=== PATIENT | male | born 1975 | race African-American/Black ===

== ENCOUNTER 2017-01-02 07:30 | Emergency (ER) | payer MEDICAID ==
[~2017-01-02] VITALS: Ht 185.4 cm; Wt 80.0 kg
[2017-01-02] MEDS ORDERED: KEPP500 PO (07:32)
[2017-01-02] MEDS ORDERED: METOCLOPRAMIDE HCL 10MG/2ML VIAL IV ONE (08:15)
[2017-01-02] MEDS ORDERED: KETOROLAC 30MG/ML VIAL IV ONE (08:15)
[2017-01-02 08:17] LABS: BASOPHILS % 0.7 % (0.0-2.0); EOSINOPHILS % 1.1 % (0.0-5.0); HEMATOCRIT. 42.2 % (42.0-52.0); HEMOGLOBIN. 14.4 g/dL (14.0-18.0); LYMPHOCYTES % 27.9 % (20.0-50.0); MEAN CORPUSCULAR HEMOGLOBIN 35.2 pg (28.0-32.0); MEAN CORPUSCULAR VOLUME 103.5 fL (80.0-94.0); MEAN PLATELET VOLUME 8.4 fl (7.4-10.4); NEUTROPHILS % 61.3 % (40.0-76.0); PLATELET 167 x1000/uL (130-400); RED BLOOD CELL COUNT 4.08 mill/uL (4.7-6.1); RED CELL DISTRIBUTION WIDTH 11.7 % (11.6-14.6)
[2017-01-02 08:25] VITALS: BP 143/103
[2017-01-02 08:25] LABS: INR 1.1; PROTHROMBIN TIME 11.8 sec
[2017-01-02 08:33] LABS: CARBON DIOXIDE 25 mEq/L (21-32); CHLORIDE 108 mEq/L (98-107)
== END 2017-01-02 08:38 | disposition home or self-care (01) ==
LOC: ER 07:34
DX: R56.9 Unspecified convulsions (principal); I10 Essential (primary) hypertension; F12.10 Cannabis abuse, uncomplicated; Z88.8 Allergy status to other drugs, medicaments and biological substances
CPT/HCPCS: 36415; 80053; 83605; 85025; 85610; 87040; 99284

== ENCOUNTER 2017-08-05 14:19 | Emergency (ER) | payer MEDICAID ==
[~2017-08-05] VITALS: Ht 177.8 cm; Wt 70.0 kg
[~2017-08-05 14:19] MED LIST: KEPP500 PO
[2017-08-05 15:29] VITALS: BP 115/79
== END 2017-08-05 16:16 | disposition left against medical advice (07) ==
LOC: ER 14:28
DX: Z53.21 Procedure and treatment not carried out due to patient leaving prior to being seen by health care provider (principal)

== ENCOUNTER 2024-05-26 02:55 | Inpatient (IN) | payer MEDICAID, OTHER ==
[~2024-05-26] VITALS: Ht 177.8 cm; Wt 79.4 kg
[2024-05-26] MEDS: MIDAZOLAM HCL 2 MG/2 ML VIAL IV ONE ×2 (03:35→03:51)
[2024-05-26] MEDS: LEVETIRACETAM 1000MG PREMIX 100 ML IV ONE (03:36)
[2024-05-26] MEDS: SODIUM CHLORIDE 0.9% 1,000 ML IV ONE (03:36)
[2024-05-26 03:43] LABS: BASOPHILS % 0.2 % (0.0-2.0); EOSINOPHILS % 0.1 % (0.0-5.0); HEMATOCRIT. 47.3 % (42.0-52.0); HEMOGLOBIN. 15.1 g/dL (14.0-18.0); MEAN CORPUSCULAR HEMOGLOBIN 35.8 pg (28.0-32.0); MEAN CORPUSCULAR HGB CONC 31.9 g/dL (31.0-37.0); MEAN CORPUSCULAR VOLUME 112.1 fL (80.0-94.0); MEAN PLATELET VOLUME 8.7 fl (7.4-10.4); MONOCYTES % 5.5 % (2.0-8.0); NEUTROPHILS % 80.2 % (40.0-76.0); PLATELET 213 x1000/uL (130-400); RED BLOOD CELL COUNT 4.22 mill/uL (4.7-6.1); RED CELL DISTRIBUTION WIDTH 13.7 % (11.6-14.6); WHITE BLOOD COUNT 17.5 x1000/uL (4.5-11.0)
[2024-05-26 03:46] LABS: ADD RBC MORPHOLOGY YES; DIFFERENTIAL COMMENT 1
[2024-05-26 03:50] LABS: CHLORIDE 106 mEq/L (98-107); POTASSIUM 4.6 mEq/L (3.5-5.1); SODIUM 139 mEq/L (136-145)
[2024-05-26 03:51] LABS: CALCIUM 8.8 mg/dL (8.7-10.4); CARBON DIOXIDE 14 mEq/L (21-32)
[2024-05-26 03:56] LABS: CREATININE 1.3 mg/dL (0.6-1.3); GLUCOSE 157 mg/dL (70-105); UREA NITROGEN BLOOD 16 mg/dL (9-23)
[2024-05-26 03:57] LABS: TROPONIN I HIGH SENSITIVITY 10 ng/L (3.0-53)
[2024-05-26 04:24] LABS: BG BASE EXCESS -12.6 mmol/L (-2.0-3.0); BG CARBOXYHEMOGLOBIN 2.3 % (0.5-1.5); BG DEOXYHEMOGLOBIN 2.3 % (0.0-5.0); BG FRACTION INSPIRED OXYGEN 100; BG HCO3 ACT 13.3 mmol/L (21.0-28.0); BG METHEMOGLOBIN 0.3 % (0.5-1.5); BG OXYGEN SATURATION 97.6 % (94.0-98.0); BG OXYHEMOGLOBIN 95.1 % (94.0-98.0); BG PH 7.249 (7.350-7.450); BG TOTAL HEMOGLOBIN 14.5 g/dL (13.5-17.5); BG VENT MODE RESUS BAG
[2024-05-26 04:39] LABS: LACTIC ACID 15.3 mmol/L (0.4-2.0)
[2024-05-26] MEDS: LORAZEPAM 2MG/ML INJ IV ONE (05:35)
[2024-05-26] MEDS ORDERED: DOCUSATE SODIUM 100MG CAPSULE PO PRN (08:00)
[2024-05-26] MEDS ORDERED: GUAIFENESIN 200MG/10ML SUGAR FREE UDC PO PRN (08:00)
[2024-05-26] MEDS ORDERED: ACETAMINOPHEN 325MG TABLET PO PRN ×2 (08:00)
[2024-05-26] MEDS ORDERED: IPRATROPIUM/ALBUTEROL 0.5-3(2.5)MG/3ML NEB HHN PRN (08:00)
[2024-05-26] MEDS: LACTATED RINGERS 1,000 ML IV SCH (08:15)
[2024-05-26 08:30] VITALS: PULSE 118; RESP 20
[2024-05-26] MEDS: IPRATROPIUM/ALBUTEROL 0.5-3(2.5)MG/3ML NEB HHN SCH (08:36)
[2024-05-26] MEDS ORDERED: LEVETIRACETAM 500MG PREMIX 100 ML IV SCH (09:00)
[2024-05-26] MEDS: LEVETIRACETAM 500MG PREMIX 100 ML IV SCH (09:06)
[2024-05-26] MEDS: PIPERACILLIN/TAZO 3.375G/50ML 50 ML IV SCH (09:06)
[2024-05-26 09:48] LABS: CLARITY URINE CLEAR (CLEAR); COLOR URINE YELLOW (YELLOW); GLUCOSE URINE NEGATIVE (NEGATIVE); KETONES URINE 2+ (NEGATIVE); LEUKOCYTE ESTERASE URINE NEGATIVE (NEGATIVE); NITRITE URINE NEGATIVE (NEGATIVE); OCCULT BLOOD URINE 1+ (NEGATIVE); PROTEIN URINE NEGATIVE (NEGATIVE); SPECIFIC GRAVITY URINE 1.013 (1.005-1.030); UROBILINOGEN URINE 0.2 E.U./dL (0.2-1.0)
[2024-05-26] MEDS: VANCOMYCIN 1.5GM/250ML IV SCH (09:53)
[2024-05-26 10:29] LABS: *AMPHETAMINES SCREEN URINE NEGATIVE (NEGATIVE); *BARBITURATES SCREEN URINE NEGATIVE (NEGATIVE); *BENZODIAZEPINES SCREEN URINE PRESUMPTIVE POSITIVE (NEGATIVE); *COCAINE SCREEN URINE NEGATIVE (NEGATIVE)
[2024-05-26 10:30] LABS: CANNABINOID URINE SCREEN PRESUMPTIVE POSITIVE (NEGATIVE); ECSTASY MDMA SCREEN URINE NEGATIVE (NEGATIVE); METHADONE URINE SCREEN NEGATIVE (NEGATIVE); OPIATES URINE SCREEN NEGATIVE (NEGATIVE); PHENCYCLIDINE URINE SCREEN NEGATIVE (NEGATIVE)
[2024-05-26 11:35] LABS: MUCUS URINE 1+ /lpf (NONE/TRACE)
[2024-05-26 11:42] LABS: BACTERIA URINE NONE SEEN; RBC URINE 0-2 /hpf (0-2); SQUAMOUS EPITHELIAL CELL URINE FEW /lpf (RARE/1+); WBC URINE 0-2 /hpf (0-2)
[2024-05-26] MEDS: LORAZEPAM 2MG/ML INJ IV PRN (13:45)
[2024-05-26 13:49] VITALS: BP 126/76; PULSE 89; RESP 20; TEMP 37.05852; O2SAT 98
[2024-05-26 16:00] VITALS: BP 168/76; PULSE 92; RESP 18; TEMP 36.78072; O2SAT 97
[2024-05-26 16:24] VITALS: BP 131/80; PULSE 90; RESP 20; TEMP 37.252
[2024-05-26 17:21] LABS: PLATELET ESTIMATE NORMAL
[2024-05-26] MEDS ORDERED: LEVETIRACETAM 500MG TABLET PO SCH (21:00)
[2024-05-26] MEDS: VANCOMYCIN 750MG/150ML (BAXTER) IV SCH (21:00)
[2024-05-26] MEDS ORDERED: LORAZEPAM 0.5MG TABLET PO NR (21:41)
[2024-05-26] MEDS: DIPHENHYDRAMINE 50MG/ML VIAL IM NR (23:07)
[2024-05-26] MEDS: LORAZEPAM 2MG/ML INJ IM NR (23:07)
[2024-05-27] VITALS (7 sets, daily range): BP systolic 127–208; BP diastolic 67–123; PULSE 68–121; RESP 17–18; TEMP 36.6696–37.00296; O2SAT 97–100
[2024-05-27] MEDS ORDERED: LORAZEPAM 2MG/ML INJ IM PRN (01:30)
[2024-05-27] MEDS: HALOPERIDOL LACTATE 5MG/ML VIAL IM PRN (02:41)
[2024-05-27] MEDS ORDERED: LEVETIRACETAM 500MG TABLET PO SCH ×2 (03:00→09:00)
[2024-05-27] MEDS: LEVETIRACETAM 500MG TABLET PO SCH (03:00)
[2024-05-27 12:46] LABS: BASOPHILS % 0.3 % (0.0-2.0); DIFFERENTIAL COMMENT 0; HEMATOCRIT. 40.5 % (42.0-52.0); HEMOGLOBIN. 13.7 g/dL (14.0-18.0); LYMPHOCYTES % 12.8 % (20.0-50.0); MEAN CORPUSCULAR HEMOGLOBIN 35.5 pg (28.0-32.0); MEAN CORPUSCULAR HGB CONC 33.8 g/dL (31.0-37.0); MEAN PLATELET VOLUME 8.5 fl (7.4-10.4); MONOCYTES % 9.5 % (2.0-8.0); NEUTROPHILS % 77.4 % (40.0-76.0); PLATELET 167 x1000/uL (130-400); RED BLOOD CELL COUNT 3.85 mill/uL (4.7-6.1); RED CELL DISTRIBUTION WIDTH 12.6 % (11.6-14.6)
[2024-05-27 12:49] LABS: CARBON DIOXIDE 22 mEq/L (21-32); CHLORIDE 109 mEq/L (98-107); POTASSIUM 3.7 mEq/L (3.5-5.1); SODIUM 140 mEq/L (136-145)
[2024-05-27 12:54] LABS: CREATININE 0.9 mg/dL (0.6-1.3)
[2024-05-27 12:55] LABS: GLUCOSE 93 mg/dL (70-105); TRIGLYCERIDE 100 mg/dL (0-150); UREA NITROGEN BLOOD 15 mg/dL (9-23)
[2024-05-27 12:56] LABS: LDL CHOLESTEROL 128 mg/dL (5-100)
[2024-05-27 12:57] LABS: CHOLESTEROL 190 mg/dL (<200); HDL CHOLESTEROL 43 mg/dL (>55)
[2024-05-27 19:42] LABS: ALANINE AMINOTRANSFERASE 15 IU/L (10-49); ALBUMIN 4.6 g/dL (3.2-4.8); ASPARTATE AMINOTRANSFERASE 43 IU/L (<34); BILIRUBIN DIRECT 0.3 mg/dL (<=3.0); PROTEIN TOTAL 8.1 g/dL (6.0-8.3)
[2024-05-27 19:53] LABS: CREATINE KINASE 1471 IU/L (46-171)
[2024-05-27] MEDS: FAMOTIDINE 20MG TABLET PO SCH (20:18)
[2024-05-27] MEDS: CLONIDINE 0.1MG TABLET PO PRN (20:18)
[2024-05-27] MEDS: VISCOUS LIDOCAINE 2% 15 ML UDC MM PRN (23:42)
[2024-05-27] MEDS: HYDRALAZINE 20MG/ML VIAL IV NR (23:42)
[2024-05-28] VITALS (10 sets, daily range): BP systolic 124–163; BP diastolic 44–111; PULSE 77–114; RESP 18–20; TEMP 36.3918–37.00296; O2SAT 95–100
[2024-05-28] MEDS: FOLIC ACID 1MG TABLET PO SCH (08:19)
[2024-05-28] MEDS: AMLODIPINE 5MG TABLET PO SCH (08:19)
[2024-05-28 08:36] LABS: BASOPHILS % 0.2 % (0.0-2.0); CARBON DIOXIDE 23 mEq/L (21-32); CHLORIDE 106 mEq/L (98-107); DIFFERENTIAL COMMENT 0; EOSINOPHILS % 0.2 % (0.0-5.0); HEMATOCRIT. 39.4 % (42.0-52.0); HEMOGLOBIN. 13.4 g/dL (14.0-18.0); LYMPHOCYTES % 17.1 % (20.0-50.0); MEAN CORPUSCULAR HEMOGLOBIN 35.7 pg (28.0-32.0); MEAN CORPUSCULAR HGB CONC 34.1 g/dL (31.0-37.0); MEAN CORPUSCULAR VOLUME 104.7 fL (80.0-94.0); MONOCYTES % 12.1 % (2.0-8.0); NEUTROPHILS % 70.4 % (40.0-76.0); PLATELET 158 x1000/uL (130-400); POTASSIUM 3.5 mEq/L (3.5-5.1); RED BLOOD CELL COUNT 3.76 mill/uL (4.7-6.1); RED CELL DISTRIBUTION WIDTH 12.5 % (11.6-14.6); SODIUM 140 mEq/L (136-145); WHITE BLOOD COUNT 8.6 x1000/uL (4.5-11.0)
[2024-05-28 08:37] LABS: CALCIUM 9.4 mg/dL (8.7-10.4)
[2024-05-28 08:42] LABS: CREATININE 0.7 mg/dL (0.6-1.3); GLUCOSE 91 mg/dL (70-105); UREA NITROGEN BLOOD 13 mg/dL (9-23)
[2024-05-28] MEDS ORDERED: THIAMINE HCL 100MG TABLET PO SCH (09:00)
[2024-05-28] MEDS: HYDRALAZINE 20MG/ML VIAL IV PRN (13:07)
[2024-05-28] MEDS: FAMOTIDINE 20MG TABLET PO SCH (15:58)
[2024-05-28] MEDS: CARVEDILOL 6.25 MG TABLET PO SCH (16:05)
[2024-05-29] VITALS (10 sets, daily range): BP systolic 122–152; BP diastolic 88–114; PULSE 84–114; RESP 18–19; TEMP 36.3918–36.72516; O2SAT 97–98
[2024-05-30] VITALS: BP 152/100; PULSE 92; RESP 18; TEMP 36.3918; O2SAT 97
[2024-05-30 04:00] VITALS: BP 141/96; PULSE 80; RESP 18; TEMP 36.44736; O2SAT 97
[2024-05-30 05:35] VITALS: PULSE 80
[2024-05-30] MEDS ORDERED: KEPP500 PO (12:08)
[2024-05-30] MEDS ORDERED: AMLO5TAB88 PO (12:08)
[2024-05-30] MEDS ORDERED: COR6 PO (12:08)
[2024-05-30] MEDS ORDERED: OXCA300T31 PO ×2 (12:08→12:09)
== END 2024-05-30 11:10 | disposition left against medical advice (07) | DRG 720 ==
LOC: ER 02:55 → 5WST 04:51 → EDBEDREQSVC 08:31 → 7EST 05-27 21:38
PROVIDERS: ADMIT Internal Medicine; ATTEND Internal Medicine
DX: A41.9 Sepsis, unspecified organism (principal); G93.41 Metabolic encephalopathy; G40.901 Epilepsy, unspecified, not intractable, with status epilepticus; I11.9 Hypertensive heart disease without heart failure; D75.89 Other specified diseases of blood and blood-forming organs; F12.988 Cannabis use, unspecified with other cannabis-induced disorder; Z53.29 Procedure and treatment not carried out because of patient's decision for other reasons; Z91.148 Patient's other noncompliance with medication regimen for other reason
CPT/HCPCS: 36415; 36600; 71045; 80048; 80061; 80076; 80305; 80320; 81003; 82375; 82550; 82805; 83605; 84145; 84484; 85025; 93005; 94640; 98960; 99291; J0360; J1200; J1630; J1953; J2060; J2250; J2543; J3370; J7030; G0480

== ENCOUNTER 2024-07-26 12:42 | Emergency (ER) | payer MEDICAID, OTHER ==
[~2024-07-26] VITALS: Ht 175.3 cm; Wt 75.0 kg
[~2024-07-26 12:42] MED LIST changes: +AMLO5TAB88 PO; +COR6 PO; +OXCA300T31 PO
[2024-07-26 12:46] VITALS: O2SAT 100
[2024-07-26] MEDS ORDERED: OXCARBAZEPINE 300MG TABLET PO SCH (13:15)
[2024-07-26] MEDS: LEVETIRACETAM 500MG PREMIX 100 ML IV ONE (13:15)
[2024-07-26 14:06] LABS: BASOPHILS % 0.3 % (0.0-2.0); DIFFERENTIAL COMMENT 0; EOSINOPHILS % 0.1 % (0.0-5.0); HEMOGLOBIN. 12.9 g/dL (14.0-18.0); LYMPHOCYTES % 8.6 % (20.0-50.0); MEAN CORPUSCULAR HEMOGLOBIN 34.8 pg (28.0-32.0); MEAN CORPUSCULAR HGB CONC 32.2 g/dL (31.0-37.0); MEAN PLATELET VOLUME 8.9 fl (7.4-10.4); MONOCYTES % 9.1 % (2.0-8.0); NEUTROPHILS % 81.9 % (40.0-76.0); PLATELET 221 x1000/uL (130-400); WHITE BLOOD COUNT 14.4 x1000/uL (4.5-11.0)
[2024-07-26 14:16] LABS: CHLORIDE 109 mEq/L (98-107); POTASSIUM 4.6 mEq/L (3.5-5.1); SODIUM 138 mEq/L (136-145)
[2024-07-26 14:17] LABS: CALCIUM 9.3 mg/dL (8.7-10.4); CARBON DIOXIDE 18 mEq/L (21-32)
[2024-07-26 14:21] VITALS: TEMP 36.55848
[2024-07-26 14:22] LABS: CREATININE 0.8 mg/dL (0.6-1.3); GLUCOSE 110 mg/dL (70-105); UREA NITROGEN BLOOD 10 mg/dL (9-23)
[2024-07-26 14:24] LABS: ETHANOL BLOOD < 10 mg/dL (<10)
[2024-07-26] MEDS ORDERED: OXCA300T31 PO (15:41)
[2024-07-26] MEDS ORDERED: KEPP500 PO (15:41)
[2024-07-26 15:53] LABS: CLARITY URINE CLEAR (CLEAR); COLOR URINE YELLOW (YELLOW); GLUCOSE URINE NEGATIVE (NEGATIVE); KETONES URINE NEGATIVE (NEGATIVE); LEUKOCYTE ESTERASE URINE NEGATIVE (NEGATIVE); NITRITE URINE NEGATIVE (NEGATIVE); OCCULT BLOOD URINE 2+ (NEGATIVE); PROTEIN URINE TRACE (NEGATIVE); SPECIFIC GRAVITY URINE 1.015 (1.005-1.030); UROBILINOGEN URINE 0.2 E.U./dL (0.2-1.0)
[2024-07-26 16:09] LABS: *AMPHETAMINES SCREEN URINE NEGATIVE (NEGATIVE); *BARBITURATES SCREEN URINE NEGATIVE (NEGATIVE); *BENZODIAZEPINES SCREEN URINE PRESUMPTIVE POSITIVE (NEGATIVE); *COCAINE SCREEN URINE NEGATIVE (NEGATIVE); METHADONE URINE SCREEN NEGATIVE (NEGATIVE); OPIATES URINE SCREEN NEGATIVE (NEGATIVE)
[2024-07-26 16:10] LABS: CANNABINOID URINE SCREEN PRESUMPTIVE POSITIVE (NEGATIVE); ECSTASY MDMA SCREEN URINE NEGATIVE (NEGATIVE); PHENCYCLIDINE URINE SCREEN NEGATIVE (NEGATIVE)
[2024-07-26 16:19] VITALS: BP 152/91; PULSE 72; RESP 16; O2SAT 97
[2024-07-26 17:39] LABS: RBC URINE NONE SEEN /hpf (0-2); SQUAMOUS EPITHELIAL CELL URINE RARE /lpf (RARE/1+); WBC URINE 0-2 /hpf (0-2); YEAST URINE NONE SEEN
[2024-07-26 17:40] LABS: BACTERIA URINE RARE
== END 2024-07-26 17:00 | disposition home or self-care (01) ==
LOC: ER 12:46
DX: R56.9 Unspecified convulsions (principal); I10 Essential (primary) hypertension; F12.90 Cannabis use, unspecified, uncomplicated; Z79.899 Other long term (current) drug therapy
CPT/HCPCS: 80305; 80048; 81003; 80320; 85025; 36415; 96365; 96366; 99284; J1953; A4663; Z7610 ×4; A4606; G0480